=== PATIENT | female | born 1965 | race Caucasian/White ===

== ENCOUNTER 2018-07-18 14:53 | Emergency (ER) | payer MEDICAID ==
[~2018-07-18] VITALS: Ht 160 cm; Wt 54.4 kg
[2018-07-18 14:55] VITALS: Ht 160 cm; Wt 54.4 kg
[2018-07-18 15:29] LABS: BASOPHIL % 0.4 % (0-2); PLATELET COUNT 258 x10^3mcL (130-400); RED CELL DISTRIBUTION WIDTH 13.4 % (11.5-14.5)
[2018-07-18 15:33] LABS: CALCIUM 9.4 mg/dL (8.5-10.1); CARBON DIOXIDE 29.6 mmol/L (21-32); CHLORIDE SERUM 106 mmol/L (98-107); CREATININE SERUM 0.8 mg/dL (0.6-1.0); GFR1 > 60 mL/min; GLUCOSE SERUM 144 mg/dL (74-106); POTASSIUM SERUM 3.3 mmol/L (3.5-5.1); SODIUM SERUM 143 mmol/L (136-145)
[2018-07-18 16:31] VITALS: BP 105/66
== END 2018-07-18 16:22 | disposition home or self-care (01) ==
LOC: ED 14:53
PROVIDERS: Emergency Medicine
DX: R55 Syncope and collapse (principal); E87.6 Hypokalemia; R42 Dizziness and giddiness
CPT/HCPCS: J7030; Q0092